=== PATIENT | female | born 1980 | race Caucasian/White ===

== ENCOUNTER 2019-06-22 08:46 | Outpatient (REF) | payer OTHER, SELFPAY ==
[2019-06-22 14:16] LABS: Calculated LDL 78 mg/dL; Cholesterol 155 mg/dL (50-200); HDL Cholesterol 63 mg/dL (40-60); Triglyceride 71 mg/dL (30-150); Vitamin B12 454 pg/mL (193-986)
== END 2019-06-22 09:06 ==
LOC: NCHCN 08:46
PROVIDERS: PCP Nurse Practitioner; Visit Provider Nurse Practitioner
DX: R41.3 Other amnesia (principal); G43.109 Migraine with aura, not intractable, without status migrainosus; Z13.220 Encounter for screening for lipoid disorders
CPT/HCPCS: 80061; 83721; 82607

== ENCOUNTER 2020-05-22 01:21 | Outpatient (CLI) | payer OTHER, SELFPAY ==
[2020-05-22 11:01] LABS: TSH (W/Ref FT4) 2.17 uIU/mL (0.36-3.74)
== END 2020-05-22 01:41 ==
PROVIDERS: PCP Nurse Practitioner; Visit Provider Nurse Practitioner Family
DX: N92.6 Irregular menstruation, unspecified (principal)
CPT/HCPCS: 36415; 84443

== ENCOUNTER 2020-05-28 09:05 | Outpatient (REF) | payer OTHER, SELFPAY ==
--- NOTE | 2020-05-28 08:30 | PAPFT_PTH ---
PATIENT: Janelle Luna LOC: N U#:[id number] AGE/SX: 40/F ROOM: RE05/28/[address]: NING Delaney : 1980 BED: DIS: 05/28/2020 SPEC #: [id number] RECD: 05/28/20 12:49 STATUS: CARLOS REQ #: [id number] ESTELA: 05/28/20 08:[address]: Maris Black DEPT: [facility] Cytology RECD BY: Racquel Eduardo ENTERED: 05/28/20 12:50 SP TYPE: PAPFT OTHR DR: Myra Leigh Tissues: 1 - CX/ENDOCX FOR PAP SMEARS Procedures: PAP THIN PREP/UVM Screening HPV DNA PROBE Comments: [id number]
== END 2020-05-28 09:25 ==
LOC: LBN 09:05
PROVIDERS: PCP Nurse Practitioner; Visit Provider Nurse Practitioner Family
DX: Z12.4 Encounter for screening for malignant neoplasm of cervix (principal); Z11.51 Encounter for screening for human papillomavirus (HPV); R87.610 Atypical squamous cells of undetermined significance on cytologic smear of cervix (ASC-US)
CPT/HCPCS: 88142; 87624

== ENCOUNTER 2020-07-06 03:40 | Outpatient (CLI) | payer OTHER, SELFPAY ==
--- NOTE | 2020-07-06 06:30 | DI.US_ITS ---
EXAM: US PELVIS TRANSVAGINAL CLINICAL HISTORY: bulky uterus,enlarged uterus,personal h/o cervical dysplasia,n85.2,n81.89 TECHNIQUE: Ultrasound performed using standard protocol. COMPARISON: No exams were available for comparison FINDINGS: Pelvic ultrasound was performed transabdominally and transvaginally. There is an apparent 6 millimete r in diameter uterine fibroid projected adjacent to the endometrial stripe in the midbody. Mild heter ogeneity myometrial echogenicity noted. The endometrial stripe is homogeneous and about 3 millimeters in thickness. Right ovary has a normal follicular appearance with an exophytic simple cyst or follicle measuring 14 millimeters in diameter. Left ovary contains a 19 millimeter dominant follicle or cyst. A complex 19 millimeter avascular pred ominantly cystic mass is also noted on the left ovary which is indeterminate but which may represent hemorrhagic cyst. No free fluid identified in the cul-de-sac. Incidental 15 millimeter left renal simple cyst, otherwis e the kidneys appear normal on limited scanning. IMPRESSION: 19 millimeter complex left ovarian mass, possibly hemorrhagic cyst. Follow-up ultrasound recommended in 4-6 weeks to further evaluate this lesion. DATA REPOSITORY:
== END 2020-07-06 04:00 ==
PROVIDERS: PCP Nurse Practitioner; Visit Provider Nurse Practitioner Family
DX: N83.9 Noninflammatory disorder of ovary, fallopian tube and broad ligament, unspecified (principal); N81.89 Other female genital prolapse; N85.2 Hypertrophy of uterus; N83.202 Unspecified ovarian cyst, left side; N83.201 Unspecified ovarian cyst, right side
CPT/HCPCS: 76830; 76856

== ENCOUNTER 2020-07-25 01:03 | Outpatient (CLI) | payer OTHER, SELFPAY ==
--- NOTE | 2020-07-25 15:30 | DI.MAMMO_ITS ---
EXAM: MAMMO SCREENING CLINICAL HISTORY: screening TECHNIQUE: Mammograms were interpreted according to the usual protocol including computer analysis w [employer] CAD system, tomosynthesis and C-view imaging. COMPARISON: FINDINGS: The breasts are heterogeneously dense. No dominant mass or clumped microcalcification is identified in either breast. Today's examination is a baseline examination. There is a 6 millimeter in diameter nodule which is incompletely visualized seen posteriorly in the l ateral aspect of left breast on CC view only. Additional views of the left breast are requested incl uding an exaggerated CC view. Breast ultrasound should probably be obtained as well to evaluate this small well-circumscribed mass. No other suspicious abnormality seen. IMPRESSION: Additional mammographic views left breast and left breast ultrasound requested as described above. BI-RADS Category 0 - Assessment Incomplete: Need additional imaging evaluation Breast Density - Category C - Heterogeneously dense
== END 2020-07-25 01:23 ==
PROVIDERS: PCP Nurse Practitioner; Visit Provider Nurse Practitioner Family
DX: Z12.31 Encounter for screening mammogram for malignant neoplasm of breast (principal); N63.20 Unspecified lump in the left breast, unspecified quadrant; R92.2 Inconclusive mammogram
CPT/HCPCS: 77063; 77067

== ENCOUNTER 2020-08-10 04:03 | Outpatient (CLI) | payer OTHER, SELFPAY ==
--- NOTE | 2020-08-10 | DI.MAMMO_ITS ---
EXAM: MG MAMMO SCREEN CALL BACK UNI CLINICAL HISTORY: F/U MAMMO, NODULE LT BREAST INCOMPLETELY VISUALIZED. TECHNIQUE: Exaggerated lateral cc view of the left breast with Computer Aided Diagnosis followed by Tomosynthesis and left breast ultrasound. COMPARISON: 25 July 2020 FINDINGS: Mammography/Tomosynthesis: Masses/Architectural Distortion: None seen. There is a smoothly marginated small ovoid lesion with a central fatty hilum in the upper outer quadrant of the left breast with the typical appearance of a lymph node. Microcalcifictions: No suspicious pleomorphic-type are seen. Skin Thickening/Nipple Retraction: None. Breast US: Echotexture: Normal appearance of the glandular tissue. Shadowing: No suspicious foci. Cyst: None. Solid lesions: There is a 5 x 6 x 4 millimeter smoothly marginated hypoechoic lesion in the 2 o'clock position 4 cm from the nipple. No suspicious masses are seen. Ductal dilation: None. IMPRESSION: 1. No evidence of malignancy is noted. The nodule seen on mammogram has the appearance of an intra ma mmary lymph node. 2. Unless there is more urgent need, follow-up screening mammography is recommended, as per [employer] guidelines. BI-RADS Category 1 - Negative Breast Density - Category C - Heterogeneously dense The mammogram demonstrates the patient's breast tissue is dense. Dense breast tissue is very common a nd is not abnormal but dense breast tissue can make it harder to find cancer on a mammogram. Also, de nse breast tissue may increase their breast cancer risk. This information [facility] the [facility] was provided to the patient to raise their awareness. Use this report when you speak wi th the patient about their risks for breast cancer, which includes their family history. At that time , you may recommend for more screening tests (Ultrasound or MRI) as they might be useful based on the ir risk. A negative radiographic report should not delay biopsy if a dominant or clinically suspicious mass is present. Up to ten percent of cancers are not identified on mammography. A negative report may reinforce clinical impression. Adenosis and dense breasts may obscure an underlying neoplasm. False positive reports average 6 to 10%. Patient will receive a letter notifying them of these results.
== END 2020-08-10 04:23 ==
PROVIDERS: PCP Nurse Practitioner; Visit Provider Nurse Practitioner Family
DX: Z12.39 Encounter for other screening for malignant neoplasm of breast (principal); N63.20 Unspecified lump in the left breast, unspecified quadrant; R92.2 Inconclusive mammogram
CPT/HCPCS: 76642; 77063; 77067

== ENCOUNTER 2022-02-07 16:07 | Outpatient (REF) | payer OTHER, SELFPAY ==
--- NOTE | 2022-02-07 | PAPFT_PTH ---
PATIENT: Janelle Luna LOC: [facility] U#:[id number] AGE/SX: 42/F ROOM: RE02/07/[address]: NING Delaney : 1980 BED: DIS: 02/07/2022 SPEC #: [id number] RECD: 02/07/22 17:06 STATUS: CARLOS REVilla #: [id number] ESTELA: 02/07/22 00:[address]: Maris Black DEPT: [facility] Cytology RECD BY: Racquel Eduardo ENTERED: 02/07/22 17:06 SP TYPE: PAPFT OTHR DR: Myra Leigh Tissues: 1 - CX/ENDOCX FOR PAP SMEARS Procedures: PAP THIN PREP/UVM Screening HPV DNA PROBE Comments: [id number]
== END 2022-02-07 16:08 | disposition home or self-care (01) ==
LOC: LBN 16:07
PROVIDERS: PCP Nurse Practitioner; Visit Provider Nurse Practitioner Family
DX: Z12.4 Encounter for screening for malignant neoplasm of cervix (principal); Z11.51 Encounter for screening for human papillomavirus (HPV)
CPT/HCPCS: 88142; 87624

== ENCOUNTER 2022-03-12 01:32 | Outpatient (CLI) | payer OTHER, SELFPAY ==
--- NOTE | 2022-03-12 15:22 | DI.MAMMO_ITS ---
Exam(s) MAMMO SCREENING EXAM: MAMMO SCREENING CLINICAL HISTORY: screening TECHNIQUE: Mammograms were interpreted according to the usual protocol including computer analysis w [employer] CAD system, tomosynthesis and C-view imaging. COMPARISON: 2019 FINDINGS: The breasts are composed of heterogeneously dense fibroglandular densities, Breast Density category C . No suspicious masses or suspicious microcalcifications are seen. No skin thickening or abnormal axillary lymph nodes are seen. There has been no significant change from prior exams. IMPRESSION: BI-RADS Category 1, Negative mammogram. Yearly screening mammography is recommended. Breast Density Category C, heterogeneously Dense. The mammogram demonstrates the patient's breast tissue is dense. Dense breast tissue is very common a nd is not abnormal but dense breast tissue can make it harder to find cancer on a mammogram. Also, de nse breast tissue may increase breast cancer risk. This information about the result of the mammogram report was provided to the patient to raise their awareness. Use this report when you speak with the patient about their risks for breast cancer, which includes their family history. At that time, you may recommend additional screening tests (Ultrasound or MRI) as they might be useful based on their r isk. A negative radiographic report should not delay biopsy if a dominant or clinically suspicious mass is present. Up to ten percent of cancers are not identified on mammography. A negative report may reinforce clinical impression. Adenosis and dense breasts may obscure an underlying neoplasm. False positive reports average 6 to 10%.
== END 2022-03-12 01:52 ==
PROVIDERS: PCP Nurse Practitioner; Visit Provider Nurse Practitioner Family
DX: Z12.31 Encounter for screening mammogram for malignant neoplasm of breast (principal)
CPT/HCPCS: 77063; 77067

== ENCOUNTER 2022-05-21 01:16 | Outpatient (CLI) | payer OTHER, SELFPAY ==
--- NOTE | 2022-05-21 07:00 | DI.MAMMO_ITS ---
Exam(s) MAMMO DIAGNOSTIC UNI US BREAST LT LIMITED EXAM: MAMMO DIAGNOSTIC UNI and U/S breast LT limited CLINICAL HISTORY: left breast lump, N63.20. TECHNIQUE: Craniocaudal and mediolateral oblique Full Field Digital Mammography views of the left br east with Computer Aided Diagnosis followed by Tomosynthesis and left breast ultrasound. COMPARISON: Comparison is made with prior examinations. FINDINGS: Mammography/Tomosynthesis: Masses/Architectural Distortion: None seen. Microcalcifictions: No suspicious pleomorphic-type are seen. Skin Thickening/Nipple Retraction: None. Limited left breast US: Echotexture: Normal appearance of the glandular tissue. Shadowing: No suspicious foci. Cyst: None. Solid lesions: There is a well-circumscribed radially oriented hypoechoic nodule at the 10 o'clock po sition of the left breast 8 cm from the nipple. It measures 0.5 x 0.5 x 0.6 cm. No internal blood f low, posterior acoustic shadowing or enhancement is noted. This corresponds to the palpable abnormal ity per the patient. Ductal dilation: None. IMPRESSION: 1. 0.6 cm well-circumscribed hypoechoic nodule. This may represent a benign lesion such as a fibroad enoma. 2. A six-month follow-up left mammogram and ultrasound are recommended for re-evaluation. 3. The findings were discussed with the patient on the date of the examination. BI-RADS Category 3 - 6 month - Probably Benign Finding: Recommend follow-up imaging in 6 months Breast Density - Category C - Heterogeneously dense Breast density Category C or D implies that the patient has dense breast tissue. Dense breast tissue can make it harder to find cancer on a mammogram. Dense breast tissue is also associated with an incr eased risk of breast cancer. This information about the result of the mammogram report was provided to the patient to raise their awareness. Use this report when you speak with the patient about their risks for breast cancer, which includes their family history. At that time, you may recommend additional screening tests (Ultrasoun d or MRI) as these tests may add significant information. A negative radiographic report should not delay biopsy if a dominant or clinically suspicious mass is present. Up to ten percent of cancers are not identified on mammography. A negative report may reinforce clinical impression. Adenosis and dense breasts may obscure an underlying neoplasm. False positive reports average 6 to 10%. Patient will receive a letter notifying them of these results.
== END 2022-05-21 01:36 ==
PROVIDERS: PCP Nurse Practitioner; Visit Provider Nurse Practitioner Family
DX: N63.22 Unspecified lump in the left breast, upper inner quadrant (principal); R92.2 Inconclusive mammogram
CPT/HCPCS: 76642; 77061; 77065; G0279

== ENCOUNTER → 2022-11-21 00:01 | Outpatient (CLI) | payer OTHER, SELFPAY ==
--- NOTE | 2022-11-21 08:15 | DI.US_ITS ---
Exam(s) MG MAMMO DIAGNOSTIC UNI US BREAST LT LIMITED EXAM: MG MAMMO DIAGNOSTIC UNI and U/S breast LT limited CLINICAL HISTORY: 6 mo f/u left, R92.8, F/U TO ABNL EXAM. TECHNIQUE: Craniocaudal and mediolateral oblique Full Field Digital Mammography views of the left br east with Computer Aided Diagnosis followed by Tomosynthesis and left breast ultrasound. COMPARISON: Comparison is made with other examinations. FINDINGS: Mammography/Tomosynthesis: Masses/Architectural Distortion: The ovoid density in the upper left breast has shown slight interval increase in size compared to the prior examination. There is again seen a benign-appearing lymph no de in the upper left breast. Microcalcifictions: No suspicious pleomorphic-type are seen. Skin Thickening/Nipple Retraction: None. Limited left breast US: Echotexture: Normal appearance of the glandular tissue. Shadowing: No suspicious foci. Cyst: None. Solid lesions: There is a hypoechoic 0.5 x 0.6 cm mass seen at the 10 o'clock position of the left br east 8 cm from the nipple. The mass now has irregular borders and is taller rather wide. It has a di fferent appearance compared to the prior examination. Ductal dilation: None. IMPRESSION: 1. Irregular hypoechoic 0.5 x 0.6 cm mass at the 10 o'clock position of the left breast 8 cm from the nipple. 2. Biopsy is recommended in this patient. 3. The findings were discussed with the patient on the date of the examination. Findings were also d iscussed with Dr. Julieta Arita on 11/21/2022. BI-RADS Category 4 - Suspicious Abnormality: Biopsy should be considered Breast Density - Category C - Heterogeneously dense Breast density Category C or D implies that the patient has dense breast tissue. Dense breast tissue can make it harder to find cancer on a mammogram. Dense breast tissue is also associated with an incr eased risk of breast cancer. This information about the result of the mammogram report was provided to the patient to raise their awareness. Use this report when you speak with the patient about their risks for breast cancer, which includes their family history. At that time, you may recommend additional screening tests (Ultrasoun d or MRI) as these tests may add significant information. A negative radiographic report should not delay biopsy if a dominant or clinically suspicious mass is present. Up to ten percent of cancers are not identified on mammography. A negative report may reinforce clinical impression. Adenosis and dense breasts may obscure an underlying neoplasm. False positive reports average 6 to 10%. Patient will receive a letter notifying them of these results.
== END ==
PROVIDERS: PCP Nurse Practitioner; Visit Provider Nurse Practitioner Family
DX: R92.8 Other abnormal and inconclusive findings on diagnostic imaging of breast (principal); N63.22 Unspecified lump in the left breast, upper inner quadrant
CPT/HCPCS: 76642; 77061; 77065; G0279

== ENCOUNTER 2022-12-03 03:15 | Outpatient (CLI) | payer OTHER, SELFPAY ==
--- NOTE | 2022-12-02 13:00 | BREAST_PTH ---
PATIENT: Janelle Luna LOC: [facility] U#:[id number] AGE/SX: 42/F ROOM: RE12/03/[address]: Maikol Carbajal MD : 1980 BED: DIS: 12/03/2022 SPEC #: [id number] RECD: 12/03/22 13:07 STATUS: CARLOS REQ #: [id number] ESTELA: 12/02/22 13:[address]: Maikol Carbajal DEPT: Surgical Specimen RECD BY: Racquel Eduardo ENTERED: 12/03/22 13:08 SP TYPE: Breast OTHR DR: Myra Leigh Tissues: 1 - BREAST BX NEEDLE Procedures: GROSS AND MICRO LEVEL 4 Her-2 Dual JOHANA [id number] IPEX ESTROGEN/PROGESTERONE RECEPTOR IPEX STAIN Comments: [id number]
--- NOTE | 2022-12-03 | DI.US_ITS ---
Exam(s) US NEEDLE LOCAL BREAST WO RAD EXAM: US NEEDLE LOCAL BREAST WO RAD CLINICAL HISTORY: LT BREAST MASS,ULTRASOUND GUIDED BX. Right Breast. Left Breast. TECHNIQUE: Ultrasound was provided for Dr. Maikol Carbajal for guidance with performing a left breast bi opsy. COMPARISON: US US BREAST LT LIMITED from 11/21/2022 MG MG MAMMO DIAGNOSTIC UNI from 11/21/2022 FINDINGS: Please see procedure note for details.
--- NOTE | 2022-12-03 15:30 | OPPNE_ITS ---
Date of service: 12/03/22 Time of Service: 13:00 Procedure Note Date of procedure: 12/03/22 Procedure: Ultrasound guided core needle biopsy Surgeon/Proceduralist/Physician: Maikol Carbajal Procedure Diagnosis: Left breast mass Procedure Indications: Janelle is a 42-year-old woman with a suspicious lesion observed on mammography. She underwent follow-up ultrasound that demonstrated a 0.5 x 0.6 centimeters mass in the 10 o'clock position approximately 8 years from the nipple. This was considered BI-RADS Category 4. He is here for follow-up core needle biopsy. Procedure Description: With the assistance of real-time ultrasound and assistance of an food safety field specialist, we were able to identify the irregular hypoechoic lesion described during the previous ultrasound study. It was in the left breast. It was approximately 8 cm from the nipple in the 10 o'clock position. It appeared to be approximately 1 cm deep. Next, I cleansed and prepped the skin adjacent to the ultrasound probe. Using aseptic technique, I used local anesthetic to establish a small block in the area of the skin incision, as well as along the planned trajectory of the biopsy. Next, I made a small skin incision using a #11 blade scalpel. Then, under the direct vision of the ultrasound, using a Bard 22 mm core needle biopsy device, I made 3 passes through the lesion. There were 2 acceptable specimens obtained. Thereafter, majority of the lesion was obliterated. Next, using a ultra clip to rest tissue marker, I deployed a permanent marking device into the area of the lesion in the case that future localization was required. Next, I cleansed the percutaneous biopsy site, and applied a Band-Aid.
== END 2022-12-03 03:35 ==
LOC: DI 03:15
PROVIDERS: PCP Nurse Practitioner; Visit Provider Surgery
DX: C50.412 Malignant neoplasm of upper-outer quadrant of left female breast (principal)
CPT/HCPCS: 19083; 88305; 88360; 76942; 88377

== ENCOUNTER 2022-12-10 12:21 | Outpatient (REF) | payer OTHER, SELFPAY ==
[2022-12-11 14:32] LABS: Chlamydia Result Negative (Negative); GC Result Negative (Negative)
== END 2022-12-10 12:22 | disposition home or self-care (01) ==
LOC: LBN 12:21
PROVIDERS: PCP Nurse Practitioner; Visit Provider Advanced Practice Midwife
DX: N89.8 Other specified noninflammatory disorders of vagina (principal)
CPT/HCPCS: 87491; 87591; 87480; 87510; 87660

== ENCOUNTER 2023-01-12 01:53 | Outpatient (CLI) | payer OTHER, SELFPAY ==
[2023-01-12 14:45] LABS: Abs Immature Grans 0.02 10^3/uL (0.0-0.06); Absolute Basophil Count 0.09 10^3/uL (0.0-0.2); Absolute Eosinophil Count 0.14 10^3/uL (0.0-0.7); Absolute Monocyte Count 0.93 10^3/uL (0.1-0.8); Absolute Neutrophil Count 5.88 10^3/uL (1.2-6.7); Eosinophils % 1.6; HCT 41.1 % (36.0-46.0); HGB 13.3 g/dL (11.2-15.7); Immature Grans % 0.2; Lymphocytes % 20.3; MCH 30.9 pg (27.0-33.0); MCHC 32.4 % (32.0-36.0); MCV 95 fL (80-95); MPV 9.2 fL (8.0-11.0); Monocytes % 10.5; Neutrophils % 66.4; Platelet Count 273 10^3/uL (130-400); RBC 4.31 10^6/uL (3.93-5.22); RDW 12.9 % (11.7-14.6); RDW-SD 45.6 fL; WBC 8.86 10^3/uL (4.4-10.8)
== END 2023-01-12 01:54 | disposition home or self-care (01) ==
LOC: LBO 01:54
PROVIDERS: PCP Nurse Practitioner Family; Visit Provider Obstetrics & Gynecology
DX: N92.5 Other specified irregular menstruation (principal); C50.412 Malignant neoplasm of upper-outer quadrant of left female breast; F41.8 Other specified anxiety disorders; R93.89 Abnormal findings on diagnostic imaging of other specified body structures; Z01.818 Encounter for other preprocedural examination; Z01.812 Encounter for preprocedural laboratory examination
CPT/HCPCS: 36415; 86850; 86900; 86901; 85025

== ENCOUNTER 2023-01-14 06:13 | Day surgery (SDC) | payer OTHER, SELFPAY ==
[2023-01-14 06:18] VITALS: BP 116/85; PULSE 89; RESP 18; TEMP 36.9; O2SAT 98
[2023-01-14] MEDS: Lactated Ringers 1,000 ML 125 ML IV (06:48)
--- NOTE | 2023-01-14 06:52 | W.ANESPRE ---
General Info Date of Service Date Performed: 01/14/23 Height: 5 ft 5 in Weight: 63.1 kg Body Mass Index (BMI): 23.1 Surgical Procedure: Operation Date: 01/14/23 07:40 Proposed Procedure Side Surgeon p Dilation & Curettage with Hysteroscopy, Possible Myosure Julieta Arita DO Meds Allergies and Home Medications Allergies Allergy/AdvReac Type Severity Reaction Status Date / Time escitalopram [From Lexapro] Allergy Severe Verified 01/14/23 06:20 metronidazole Allergy Severe Rash Verified 01/14/23 06:20 amoxicillin trihydrate Allergy RASH Verified 01/14/23 06:20 [From Augmentin] potassium clavulanate Allergy RASH Verified 01/14/23 06:20 [From Augmentin] diltiazem AdvReac HEADACHES Verified 01/14/23 06:20 Home Medication Medication Instructions Recorded Vitamin B-2 100 mg PO DAILY 10/14/12 multivitamin (Daily Multi-Vitamin 1 ea PO DAILY 10/18/14 tablet) lactobacillus combination no.9 4 25 mmu cells PO DAILY 06/27/20 billion cell capsule (Adult 50 Plus Probiotic) norethindrone (contraceptive) 0.35 0.35 mg PO DAILY #84 tabs 02/07/22 mg tablet calcium carbonate 600 mg-vitamin 0.5 cap PO DAILY 12/10/22 D3 12.5 mcg (500 unit) capsule (Calcium 600 with Vitamin D3) clonazepam 0.5 mg tablet (Klonopin) 0.5 mg PO DAILY PRN anxiety #7 tabs 12/10/22 Current Visit Medications: Current Medications Generic Name Dose Route Start Last Admin Trade Name Hiq PRN Reason Stop Dose Admin Ringer's Solution 1,000 mls @ 125 mls/hr 01/14/23 06:00 01/14/23 06:48 IV 02/12/23 23:59 125 mls/hr INFUSION JULIEN Administration IV Miscellaneous Supplies 1 each 01/14/23 06:00 Iv Access IV 02/12/23 23:59 DIRECTED JULIEN Sodium Chloride 0 ml 01/14/23 06:00 Normal Saline Flush 10 Ml Syr IV 02/12/23 23:59 PRN PRN Sodium Chloride 0 ml 01/14/23 06:00 Normal Saline 10 Ml Vial IJ 02/12/23 23:59 DIRECTED PRN Sterile Water 0 ml 01/14/23 06:00 Water,Injection,Sterile 10 Ml Vial IJ 02/12/23 23:59 DIRECTED PRN PFSH Active Problems Active Problems: Problem Status Onset Code Stress F43.9 Anxiety about health F41.8 Vaginal discharge N89.8 Irregular menses N92.6 Breast cancer C50.919 Abnormal mammogram R92.8 Pelvic floor relaxation N81.89 Enlarged uterus N85.2 Personal history of cervical dysplasia 05/19/17 Z87.410 Headache R51 Depression with anxiety F41.8 Urine frequency R35.0 Medical History Medical History ASCUS (atypical squamous cells of undetermined significance) on gynecologic Papanicolaou smear complicating , antepartum Depression History of palpitations Menstrual irregularity since 03/2014. Nl TSH/Prolactin. 09/2014 Started on OCPs. Migraine complex migraine UTI (urinary tract infection) Surgical History Surgical History section 2005 @ 36w for fetus with cerebral teratoma. shortly after Tobacco Smoking/Tobacco Use Status: Never Alcohol Alcohol Intake: never Substance Use Substance use: Never Substance use type: does not use Vital Signs and Lab Results Vital Signs Most Recent Vital Signs in EMR: Most Recent Vital Signs Temp Pulse Resp BP Pulse Ox 36.9 C 89 18 116/85 98 01/14/23 06:18 01/14/23 06:18 01/14/23 06:18 01/14/23 06:18 01/14/23 06:18 Point of Care Results Point of Care Results: POC- Test(urine) Negative 01/14/23 06:40 Lab Results Blood Type / Crossmatch: Patient ABO/Rh A Negative 01/12/23 Antibody Screen NEGATIVE 01/12/23 Complete Blood Count: White Blood Count 8.86 10^3/uL (4.4-10.8) 01/12/23 14:37 Red Blood Count 4.31 10^6/uL (3.93-5.22) 01/12/23 14:37 Hemoglobin 13.3 g/dL (11.2-15.7) 01/12/23 14:37 Hematocrit 41.1 % (36.0-46.0) 01/12/23 14:37 Platelet Count 273 10^3/uL (130-400) 01/12/23 14:37 Complete Metabolic Panel: No Data to Display Liver Function Panel: No Data to Display Coagulation Panel: No Data to Display Cardiac Panel: No Data to Display Arterial Blood Gas: No Data to Display Venous Blood Gas: No Data to Display Pancreas Panel: No Data to Display Thyroid Panel: No Data to Display Infectious Disease: No Data to Display Blood Cultures: No Data to Display Toxicology Panel: No Data to Display Panel: No Data to Display Anesthesia Assessment and Plan Anesthesia History Personal History: No History of Anesthesia Complications Family History: No Family History of Anesthesia Complications Exercise Tolerance Exercise Tolerance: Metabolic Equivalents>4 Pertinent Negatives Pertinent Negatives: No Symptoms of GERD Cardiac & Pulmonary Exam Cardiac Exam: Normal S1/S2 Heart Sounds Pulmonary Exam: Clear Bilateral Breath Sounds Implantable Cardiac Device Does patient have a Pacemaker or an ICD?: No Airway Exam Known Difficult Airway: No Mallampati Class: 1 Mouth Opening: Normal (> 3cm) Thyromental Distance: Greater than 3 cm Neck Range of Motion: Full ROM Neck Circumference: Normal Teeth Condition: Normal Dentition ASA Classification ASA Score: ASA 3 Emergency Case?: No NPO Status NPO Status: NPO Clears >2 hours, Solids >8 hours Status Status: Negative HCG Anesthesia Plan Resuscitation Status: Full Code Anesthesia Technique: General Anesthesia Airway Planned: LMA Pain Management: Surgeon and patient request nerve block Monitors Used: Standard Monitors
[2023-01-14 06:55] VITALS: BMI 23.1
--- NOTE | 2023-01-14 07:54 | ENDO_PTH ---
PATIENT: Janelle Luna LOC: [facility] U#:[id number] AGE/SX: 43/F ROOM: RE01/14/[address]: Julieta Arita DO : 1980 BED: DIS: 01/14/2023 SPEC #: [id number] RECD: 01/14/23 12:18 STATUS: CARLOS REQ #: [id number] ESTELA: 01/14/23 07:[address]: Julieta Arita DEPT: Surgical Specimen RECD BY: Racquel Eduardo ENTERED: 01/14/23 12:20 SP TYPE: Endo OTHR DR: Verónica Torres Tissues: 1 - ENDOCERVICAL BX/CURRETTE 2 - ENDOMETRIUM BX/CURRETTE Procedures: GROSS AND MICRO LEVEL 4 Comments: [id number]
[2023-01-14 08:12] VITALS: BP 97/64; PULSE 71; RESP 16; TEMP 36.7; O2SAT 97
--- NOTE | 2023-01-14 08:13 | W.PM.OP ---
Date of service: 01/14/23 Time of Service: 08:13 Operative Note Operative Note DATE OF PROCEDURE: 01/14/23 PRE-OP DIAGNOSIS: Heavy menstrual bleeding, thickened endometrium. New diagnosis of breast cancer. Desires contraception POST-OP DIAGNOSIS: same PROCEDURE: Hysteroscopy with fractional dilation and curettage, placement of a ParaGard IUD SURGEON: Julieta Arita ANESTHESIA TYPE: General:No Airway Refer to Anesthesia Record ESTIMATED BLOOD LOSS: 5 PATHOLOGY: other (1. Endocervical curettage 2. Endometrial curettage) COMPLICATIONS: None Implants: ParaGard IUD-Lot [id number] expiration 05/2028 Indications: Thickened endometrium and irregular menstrual bleeding. Recent diagnosis of breast cancer. Desires contraceptive management. Findings: Small polypoid structure at the endocervix, removed. Smooth endocervical canal. Regular endometrium. No evidence of intrauterine mass, polyp, or fibroid. Procedure Description: After full informed consent was obtained, patient was taken the operating suite. IV was running. Negative status verified. She was placed in the dorsal supine position and general anesthesia administered. She was then placed in the modified dorsolithotomy position with yellowfin stirrups and prepped and draped in the usual sterile fashion. She had pneumatic compression stockings for DVT prophylaxis. At this point speculum was inserted into the vaginal vault and cervix identified. There was noted to be a small polypoid lesion in the superior aspect of the cervix which was removed with a polyp forcep and endocervical curettage performed for scant tissue. Single-tooth tenaculum used to grasp the anterior lip of the cervix and cervical os dilated to point that a 5 mm hysteroscope could be passed with ease. With instillation of normal saline into the uterine cavity, the cavity was inspected and found to be smooth, regular, and free of polyps, fibroids, or any lesion. Both tubal ostia were visualized. At this point the hysteroscope was removed and curettage of the endometrial cavity performed. Once fractional dilation and curettage was completed, the uterus had been sounded to 7 cm, ParaGard IUD inserted to the fundus and deployed. Strings were cut to 3 cm. Single-tooth tenaculum was removed and puncture sites were hemostatic. Speculum was removed from the vaginal vault. Complications: None apparent EBL: 5 mL Fluids: Crystalloid per anesthesia Pathology: 1. Endocervical curetting 2. Endometrial curetting Implant: ParaGard IUD, intrauterine, lot [id number] expiration 05/2028.
[2023-01-14 08:30] VITALS: BP 108/72; PULSE 68; RESP 16; TEMP 36.6; O2SAT 99
[2023-01-14 08:45] VITALS: BP 108/72; PULSE 72; RESP 16; TEMP 36.6
--- NOTE | 2023-01-14 09:14 | W.ANESPOSTOP ---
Postoperative Evaluation Date, Time and Location Date Performed: 01/14/23 Time Performed: 09:14 Patient Location: Day Surgery Unit Vital Signs Most Recent Imported Vital Signs: Most Recent Vital Signs Temp Pulse Resp BP Pulse Ox 36.6 C 72 16 108/72 99 01/14/23 08:45 01/14/23 08:45 01/14/23 08:45 01/14/23 08:45 01/14/23 08:30 Pain Score Most Recent Pain Score: Most Recent Pain Score Pain Level 3 01/14/23 08:30 Assessment Mental Status: Awake (Alert & Oriented to Patient Baseline) Airway and Respiratory Function: Patent airway with normal (patient baseline) respiratory exam Cardiovascular Function: Hemodynamically Stable Hydration Status: Adequately Hydrated Nausea & Vomiting: No Nausea or Vomiting Pain: Pt. Denies Any Pain Peripheral Nerve Block: Patient did not receive a nerve block
== END 2023-01-14 09:22 | disposition home or self-care (01) ==
PROVIDERS: PCP Nurse Practitioner Family; Visit Provider Obstetrics & Gynecology
PROC: 0UDB8ZZ Extraction of Endometrium, Via Natural or Artificial Opening Endoscopic (ICD-10-PCS; CPT 58558; principal; 2023-01-14 07:30)
DX: N92.6 Irregular menstruation, unspecified (principal); R93.89 Abnormal findings on diagnostic imaging of other specified body structures; C50.919 Malignant neoplasm of unspecified site of unspecified female breast; Z87.410 Personal history of cervical dysplasia; Z30.8 Encounter for other contraceptive management; N85.8 Other specified noninflammatory disorders of uterus
CPT/HCPCS: 58558; 58300; 81025; 88305; J7300; C1781; J1100; J1885; J2250; J2405; J2704

== ENCOUNTER 2023-05-25 03:04 | Outpatient (CLI) | payer OTHER, SELFPAY ==
[2023-05-25 14:41] LABS: Abs Immature Grans 0.02 10^3/uL (0.0-0.06); Absolute Basophil Count 0.06 10^3/uL (0.0-0.2); Absolute Eosinophil Count 0.05 10^3/uL (0.0-0.7); Absolute Lymphocyte Count 1.17 10^3/uL (1.2-3.4); Absolute Monocyte Count 0.59 10^3/uL (0.1-0.8); Absolute Neutrophil Count 4.11 10^3/uL (1.2-6.7); Eosinophils % 0.8; HCT 37.6 % (36.0-46.0); HGB 12.7 g/dL (11.2-15.7); Immature Grans % 0.3; Lymphocytes % 19.5; MCH 31.1 pg (27.0-33.0); MCHC 33.8 % (32.0-36.0); MCV 92 fL (80-95); MPV 9.6 fL (8.0-11.0); Monocytes % 9.8; Neutrophils % 68.6; Platelet Count 257 10^3/uL (130-400); RBC 4.09 10^6/uL (3.93-5.22); RDW 12.4 % (11.7-14.6)
== END 2023-05-25 03:05 | disposition home or self-care (01) ==
LOC: LBO 03:04
PROVIDERS: PCP Nurse Practitioner Family; Visit Provider Obstetrics & Gynecology
DX: Z01.818 Encounter for other preprocedural examination (principal)
CPT/HCPCS: 36415; 86850; 86900; 86901; 85025

== ENCOUNTER 2023-05-27 08:31 | Day surgery (SDC) | payer OTHER, SELFPAY ==
[2023-05-27] VITALS (11 sets, daily range): BP systolic 89–122; BP diastolic 58–87; PULSE 60–88; RESP 10–18; TEMP 36.6–37; O2SAT 98–100; BMI 23.8
[2023-05-27] MEDS: Lactated Ringers 1,000 ML 125 ML IV (09:14)
--- NOTE | 2023-05-27 09:19 | W.ANESPRE ---
General Info Date of Service Date Performed: 05/27/23 Height: 5 ft 5 in Weight: 64.8 kg Body Mass Index (BMI): 23.8 Surgical Procedure: Operation Date: 05/27/23 09:40 Proposed Procedure Side Surgeon p Salpingectomy Laparoscopic Bilateral Julieta Arita DO s Removal of IUD Julieta Arita DO Meds Allergies and Home Medications Allergies Allergy/AdvReac Type Severity Reaction Status Date / Time escitalopram [From Lexapro] Allergy Severe Verified 05/27/23 09:17 metronidazole Allergy Severe Rash Verified 05/27/23 09:17 amoxicillin trihydrate Allergy RASH Verified 05/27/23 09:17 [From Augmentin] potassium clavulanate Allergy RASH Verified 05/27/23 09:17 [From Augmentin] diltiazem AdvReac HEADACHES Verified 05/27/23 09:17 Home Medication Medication Instructions Recorded Vitamin B-2 100 mg PO HS 10/14/12 multivitamin (Daily Multi-Vitamin 1 ea PO HS 10/18/14 tablet) lactobacillus combination no.9 4 25 mmu cells PO HS 06/27/20 billion cell capsule (Adult 50 Plus Probiotic) calcium carbonate 600 mg-vitamin 0.5 cap PO HS 12/10/22 D3 12.5 mcg (500 unit) capsule (Calcium 600 with Vitamin D3) clonazepam 0.5 mg tablet (Klonopin) 0.5 mg PO DAILY PRN anxiety #7 tabs 12/10/22 copper 380 square mm intrauterine 1 device intrauterine ONCE #1 ea 01/14/23 device (ParaGard T 380A) tamoxifen 20 mg tablet 20 mg PO HS 05/08/23 ibuprofen 800 mg tablet 800 mg PO Q8H PRN heavy menses #90 05/15/23 tabs Current Visit Medications: Current Medications Generic Name Dose Route Start Last Admin Trade Name Freq PRN Reason Stop Dose Admin Ringer's Solution 1,000 mls @ 125 mls/hr 05/27/23 06:00 05/27/23 09:14 IV 06/25/23 23:59 125 mls/hr INFUSION JULIEN Administration IV Miscellaneous Supplies 1 each 05/27/23 06:00 Iv Access IV 06/25/23 23:59 DIRECTED JULIEN Sodium Chloride 0 ml 05/27/23 06:00 Normal Saline Flush 10 Ml Syr IV 06/25/23 23:59 PRN PRN Sodium Chloride 0 ml 05/27/23 06:00 Normal Saline 10 Ml Vial IJ 06/25/23 23:59 DIRECTED PRN Sterile Water 0 ml 05/27/23 06:00 Water,Injection,Sterile 10 Ml Vial IJ 06/25/23 23:59 DIRECTED PRN PFSH Active Problems Active Problems: Problem Status Onset Code Urine frequency R35.0 Depression with anxiety F41.8 Headache R51 Personal history of cervical dysplasia 05/19/17 Z87.410 Enlarged uterus N85.2 Pelvic floor relaxation N81.89 Abnormal mammogram R92.8 Breast cancer C50.919 Irregular menses N92.6 Vaginal discharge N89.8 Anxiety about health F41.8 Stress F43.9 IUD surveillance Z30.431 Heavy menstrual bleeding N92.0 Contraceptive management Z30.9 Medical History Medical History ASCUS (atypical squamous cells of undetermined significance) on gynecologic Papanicolaou smear complicating , antepartum Depression History of palpitations Per pt. states when she gets stressed or overtired, she will have palpitations did not require work-up Menstrual irregularity since 03/2014. Nl TSH/Prolactin. 09/2014 Started on OCPs. Migraine complex migraine UTI (urinary tract infection) Surgical History Surgical History (Updated 05/27/23 @ 09:17 by Amber Gregorio, RN) section 2005 @ 36w for fetus with cerebral teratoma. shortly after History of lumpectomy of left breast Tobacco Smoking/Tobacco Use Status: Never Alcohol Alcohol Intake: never Substance Use Substance use: Never Substance use type: does not use Vital Signs and Lab Results Vital Signs Most Recent Vital Signs in EMR: Most Recent Vital Signs Temp Pulse Resp BP Pulse Ox 37 C 86 18 112/87 100 05/27/23 08:40 05/27/23 08:40 05/27/23 08:40 05/27/23 08:40 05/27/23 08:40 Point of Care Results Point of Care Results: POC- Test(urine) Negative 05/27/23 09:03 Lab Results Blood Type / Crossmatch: Patient ABO/Rh A Negative 05/25/23 Antibody Screen NEGATIVE 05/25/23 Complete Blood Count: White Blood Count 6.00 10^3/uL (4.4-10.8) 05/25/23 14:30 Red Blood Count 4.09 10^6/uL (3.93-5.22) 05/25/23 14:30 Hemoglobin 12.7 g/dL (11.2-15.7) 05/25/23 14:30 Hematocrit 37.6 % (36.0-46.0) 05/25/23 14:30 Platelet Count 257 10^3/uL (130-400) 05/25/23 14:30 Complete Metabolic Panel: No Data to Display Liver Function Panel: No Data to Display Coagulation Panel: No Data to Display Cardiac Panel: No Data to Display Arterial Blood Gas: No Data to Display Venous Blood Gas: No Data to Display Pancreas Panel: No Data to Display Thyroid Panel: No Data to Display Infectious Disease: No Data to Display Blood Cultures: No Data to Display Toxicology Panel: No Data to Display Panel: No Data to Display Anesthesia Assessment and Plan Anesthesia History Personal History: No History of Anesthesia Complications Family History: No Family History of Anesthesia Complications Exercise Tolerance Exercise Tolerance: Metabolic Equivalents>4 Pertinent Negatives Pertinent Negatives: No Symptoms of GERD, No Major Cardiovascular Symptoms or Complaints, No Major Pulmonary Symptoms or Complaints and No History of CVA/TIA Cardiac & Pulmonary Exam Cardiac Exam: Normal S1/S2 Heart Sounds Pulmonary Exam: Clear Bilateral Breath Sounds Implantable Cardiac Device Does patient have a Pacemaker or an ICD?: No Airway Exam Known Difficult Airway: No Mallampati Class: 2 Mouth Opening: Normal (> 3cm) Thyromental Distance: Less than 3 cm Neck Range of Motion: Full ROM Neck Circumference: Normal Teeth Condition: Normal Dentition ASA Classification ASA Score: ASA 2 Emergency Case?: No NPO Status NPO Status: NPO Clears >2 hours, Solids >8 hours Status Status: Negative HCG Anesthesia Plan Resuscitation Status: Full Code Anesthesia Technique: General Anesthesia Airway Planned: Endotracheal Tube Monitors Used: Standard Monitors
--- NOTE | 2023-05-27 10:40 | FALL_PTH ---
PATIENT: Janelle Luna LOC: [facility] U#:[id number] AGE/SX: 43/F ROOM: RE05/27/[address]: Julieta Arita DO : 1980 BED: DIS: 05/27/2023 SPEC #: [id number] RECD: 05/27/23 12:35 STATUS: CARLOS RE #: [id number] ESTELA: 05/27/23 10:[address]: Julieta Arita DEPT: Surgical Specimen RECD BY: Racquel Eduardo ENTERED: 05/27/23 12:40 SP TYPE: Fall OTHR DR: Verónica Torres Tissues: 1 - FALLOPIAN TUBE (STERILIZATION) 2 - FALLOPIAN TUBE (STERILIZATION) Procedures: GROSS AND MICRO LEVEL 2 Comments: [id number]
[2023-05-27] MEDS: Bupivacaine 0.25% Pres-Free 30 ML VIAL (10:45)
--- NOTE | 2023-05-27 11:00 | W.PM.OP ---
Date of service: 05/27/23 Time of Service: 11:01 Operative Note Operative Note DATE OF PROCEDURE: 05/27/23 PRE-OP DIAGNOSIS: Undesired fertility POST-OP DIAGNOSIS: same Omental adhesions PROCEDURE: Bilateral laparoscopic salpingectomy, lysis of adhesions, removal of ParaGard IUD. SURGEON: Julieta Arita ASSISTING SURGEON: Irais Collins ANESTHESIA TYPE: Local By Surgeon and General LMA/ETT Refer to Anesthesia Record ESTIMATED BLOOD LOSS: 5 PATHOLOGY: other (1. Right fallopian tube 2. Left fallopian tube) COMPLICATIONS: None Patient was transported to: PACU Patient's condition: stable Indications: Undesired fertility, risk reduction Findings: Normal-appearing uterus, tubes, ovaries. Small omental adhesion to the anterior abdominal wall. Procedure Description: After full informed consent was obtained, patient was taken the operating suite with an IV running. She was placed in the dorsal supine position and endotracheal intubation performed for the administration of general anesthesia without difficulty. She was then placed in the modified dorsal lithotomy position in yellowfin stirrups. No antibiotic prophylaxis was necessary. Pneumatic compression stockings were placed for DVT prophylaxis. Exam under anesthesia performed revealing a uterus that was small, midline, mobile. Patient was prepped and draped in the usual sterile fashion. Speculum was placed into the posterior vaginal vault and cervix identified. ParaGard IUD string identified and grasped with gentle traction ParaGard removed in toto and disposed of. At this point a Trigence uterine manipulator was placed for uterine manipulation and the speculum was removed. At this point attention was turned to the abdomen where quarter percent Marcaine was used to infiltrate the umbilical space. A vertical skin incision was made and the anterior yanet wall was elevated with sharp towel clips. Varies needle was inserted into the abdomen and with a maximum pressure of 15 mmHg of CO2 gas and pneumoperitoneum was created. Under direct visualization with an Optiview 12 mm trocar a sleeve and trocar were placed into the umbilical incision. The abdomen was inspected and found to be atraumatic. There is noted to be 1 omental adhesion to the anterior abdominal wall which was small in nature. A second and third right and left lower quadrant trocar was placed after infiltration of quarter percent Marcaine and under direct visualization. The omental adhesion was then cautery transected and noted to be hemostatic. Attention was then turned to the left fallopian tube which was elevated and cautery transected. Pedicle was hemostatic. Similar procedure was carried out on the right fallopian tube and also noted to be hemostatic. The left fallopian tube was initially removed from the abdomen via the 12 mm trocar site as well as the right fallopian tube and sent separately to pathology. Pedicles were again reinspected and noted to be hemostatic. The remainder of the abdomen was also free of trauma or disease. At this point the procedure was terminated and CO2 gas discontinued. Pneumoperitoneum was released. All instruments removed from the abdomen and the fascial incision at the umbilicus was closed using 0 Vicryl suture. Skin edges were reapproximated with 4-0 undyed Monocryl and sterile dressing with Steri-Strips placed. At this point the Hulka also was removed from the endometrial cavity. The patient returned to the dorsal supine position and awoke from anesthesia without difficulty. She was taken the postanesthesia care unit in stable condition. Findings: Removal of ParaGard IUD. Normal-appearing tubes, ovaries, uterus. No intra-abdominal trauma or pathology noted. Small omental adhesion to the anterior abdominal wall, lysed. EBL: 5 ml Fluids: Crystalloid per anesthesia complications: None apparent Pathology: 1. Right fallopian tube 2. Left fallopian tube
[2023-05-27] MEDS: fentaNYL 100 MCG/2 ML VIAL IVP ×2 (11:25→11:33)
[2023-05-27] MEDS: LORazepam 2 MG/ML VIAL 0.5 MG IVP (12:02)
--- NOTE | 2023-05-27 12:47 | W.ANESPOSTOP ---
Postoperative Evaluation Date, Time and Location Date Performed: 05/27/23 Time Performed: 12:25 Patient Location: Day Surgery Unit Vital Signs Most Recent Imported Vital Signs: Most Recent Vital Signs Temp Pulse Resp BP Pulse Ox 36.6 C 74 16 109/74 100 05/27/23 12:25 05/27/23 12:25 05/27/23 12:25 05/27/23 12:25 05/27/23 12:25 Pain Score Most Recent Pain Score: Most Recent Pain Score Pain Level 8 05/27/23 12:25 Assessment Mental Status: Awake (Alert & Oriented to Patient Baseline) Airway and Respiratory Function: Patent airway with normal (patient baseline) respiratory exam Cardiovascular Function: Hemodynamically Stable Hydration Status: Adequately Hydrated Nausea & Vomiting: No Nausea or Vomiting Pain: Pain is Moderate or Severe Postoperative Pain Management: Pain being addressed with medication Peripheral Nerve Block: Patient did not receive a nerve block
[2023-05-27] MEDS: oxyCODONE 5 mg/Acetaminophen 325 mg TAB PO (12:48)
[2023-05-27] MEDS: Normal Saline 10 ML VIAL IJ (13:59)
[2023-05-27] MEDS: Droperidol 5 MG/2 ML VIAL 0.625 MG IVP (14:00)
== END 2023-05-27 14:43 | disposition home or self-care (01) ==
PROVIDERS: PCP Nurse Practitioner Family; Visit Provider Obstetrics & Gynecology
PROC: (CPT 58661; principal; 2023-05-27 09:30)
DX: Z30.2 Encounter for sterilization (principal); Z30.432 Encounter for removal of intrauterine contraceptive device; N83.8 Other noninflammatory disorders of ovary, fallopian tube and broad ligament
CPT/HCPCS: 58661; 58301; 81025; 88302; J1100; J1790; J1885; J2001; J2060; J2405; J2704; J3010

== ENCOUNTER → 2024-06-21 01:04 | Outpatient (CLI) | payer OTHER, SELFPAY ==
--- NOTE | 2024-06-21 | DI.RAD_ITS ---
Exam(s) XR LUMBAR SPINE COMPLETE EXAM: XR LUMBAR SPINE COMPLETE CLINICAL HISTORY: PAIN IN R LSPINE REGION OF BACK, M54.50. TECHNIQUE: 2D digital imaging was performed. COMPARISON: No exams were available for comparison FINDINGS: Five views No evidence of fracture, listhesis, nor pars defects and there is no disc space narrowing. Bone dens ity normal. No osseous lesions. Facet joints appear unremarkable. Sacroiliac joints appear unremar kable. IMPRESSION: No significant radiographic findings on these five views of the lumbosacral spine. DATA REPOSITORY: RADIATION DOSE DELIVERED:
== END ==
PROVIDERS: PCP Nurse Practitioner Family; Visit Provider Nurse Practitioner Family
DX: M54.50 Low back pain, unspecified (principal)
CPT/HCPCS: 72110

== ENCOUNTER 2024-06-22 01:29 | Outpatient (CLI) | payer OTHER, SELFPAY ==
[2024-06-22 14:42] LABS: Abs Immature Grans 0.01 10^3/uL (0.0-0.06); Absolute Basophil Count 0.09 10^3/uL (0.0-0.2); Absolute Eosinophil Count 0.06 10^3/uL (0.0-0.7); Absolute Monocyte Count 0.63 10^3/uL (0.1-0.8); Absolute Neutrophil Count 3.77 10^3/uL (1.2-6.7); Basophils % 1.5 %; HCT 37.9 % (36.0-46.0); HGB 12.5 g/dL (11.2-15.7); Immature Grans % 0.2 %; Lymphocytes % 24.8 %; MCH 30.7 pg (27.0-33.0); MCV 93 fL (80-95); MPV 10.2 fL (8.0-11.0); Monocytes % 10.4 %; Neutrophils % 62.1 %; Platelet Count 228 10^3/uL (130-400); RBC 4.07 10^6/uL (3.93-5.22); RDW 12.4 % (11.7-14.6); RDW-SD 42.8 fL; WBC 6.06 10^3/uL (4.4-10.8)
[2024-06-22 15:32] LABS: ALT 20 U/L (14-59); AST 16 U/L (15-37); Albumin 3.9 g/dL (3.4-5.0); Alkaline Phosphatase 48 U/L (46-116); Anion Gap 8.8 mmol/L (3-11); BUN 10 mg/dL (7-18); Bilirubin, Total 0.51 mg/dL (0.2-1.0); CO2 28.2 mmol/L (21.0-32.0); CREATININE 0.8 mg/dL (0.55-1.02); Calcium 9.1 mg/dL (8.5-10.1); Chloride 104 mmol/L (98-107); Estimated GFR 91.97 (mL/min/1.73m2); Glucose 82 mg/dL (74-106); Potassium 3.8 mmol/L (3.5-5.1); Sodium 141 mmol/L (136-145); TSH (W/Ref FT4) 2.34 uIU/mL (0.36-3.74); Total Protein 7.8 g/dL (6.4-8.2); Vitamin D 25 Total 41.3 ng/mL (30-100)
[2024-06-23 10:36] LABS: Lyme Ab w Rflx to Lyme Confirm Negative (Negative)
== END 2024-06-22 01:30 | disposition home or self-care (01) ==
LOC: LBO 01:29
PROVIDERS: PCP Nurse Practitioner Family; Visit Provider Internal Medicine
DX: R53.83 Other fatigue (principal); C50.212 Malignant neoplasm of upper-inner quadrant of left female breast; Z17.0 Estrogen receptor positive status [ER+]; Z79.899 Other long term (current) drug therapy
CPT/HCPCS: 36415; 80053; 82306; 84443; 85025; 86618

== ENCOUNTER 2024-08-22 02:09 | Outpatient (CLI) | payer OTHER, SELFPAY ==
--- NOTE | 2024-08-22 07:15 | DI.US_ITS ---
Exam(s) US BREAST LT COMPLETE MG MAMMO SCREENING 60 MIN DUR EXAM: MG MAMMO SCREENING 60 MIN DUR and U/S breast LT complete CLINICAL HISTORY: breast cancer screening, BREAST CANCER, C50.919. TECHNIQUE: Craniocaudal and mediolateral oblique Full Field Digital Mammography views with Computer Aided Diagnosis followed by Tomosynthesis and left breast ultrasound. All 4 quadrants of the left br east were evaluated sonographically in addition to the axilla and retroareolar regions. COMPARISON: Comparison is made with prior examinations. FINDINGS: Mammography/Tomosynthesis: Masses/Architectural Distortion: There are post lumpectomy changes again seen in the left breast. No suspicious masses or new areas of architectural distortion are present. Microcalcifictions: No suspicious pleomorphic-type are seen. Skin Thickening/Nipple Retraction: None. Complete left breast US: Echotexture: Normal appearance of the glandular tissue. Shadowing: No suspicious foci. Cyst: None. Solid lesions: There is again seen and stable hypoechoic radially oriented nodule at the 1 to 2 o'arron ck position of the left breast 1-2 cm from the nipple. No new solid lesions are seen. Ductal dilation: None. IMPRESSION: 1. No evidence for malignancy is seen at this time. 2. A six-month follow-up complete left breast ultrasound is recommended. Yearly mammography is recom mended. 3. The findings were discussed with the patient on the date of the examination. BI-RADS Category 3 - 6 month - Probably Benign Finding: Recommend follow-up complete left breast ultr asound in 6 months Breast Density - Category C - Heterogeneously dense Breast density Category C or D implies that the patient has dense breast tissue. Dense breast tissue can make it harder to find cancer on a mammogram. Dense breast tissue is also associated with an incr eased risk of breast cancer. This information about the result of the mammogram report was provided to the patient to raise their awareness. Use this report when you speak with the patient about their risks for breast cancer, which includes their family history. At that time, you may recommend additional screening tests (Ultrasoun d or MRI) as these tests may add significant information. A negative radiographic report should not delay biopsy if a dominant or clinically suspicious mass is present. Up to ten percent of cancers are not identified on mammography. A negative report may reinforce clinical impression. Adenosis and dense breasts may obscure an underlying neoplasm. False positive reports average 6 to 10%. Patient will receive a letter notifying them of these results.
== END 2024-08-22 02:29 ==
LOC: DI 02:09
PROVIDERS: PCP Nurse Practitioner Family; Visit Provider Obstetrics & Gynecology
DX: N64.89 Other specified disorders of breast (principal); C50.912 Malignant neoplasm of unspecified site of left female breast; Z12.31 Encounter for screening mammogram for malignant neoplasm of breast
CPT/HCPCS: 76642; 77063; 77067

== ENCOUNTER 2024-09-05 03:11 | Outpatient (CLI) | payer OTHER, SELFPAY ==
[2024-09-05 15:03] LABS: Abs Immature Grans 0.02 10^3/uL (0.0-0.06); Absolute Eosinophil Count 0.03 10^3/uL (0.0-0.7); Absolute Lymphocyte Count 1.71 10^3/uL (1.2-3.4); Absolute Monocyte Count 0.78 10^3/uL (0.1-0.8); Basophils % 1.4 %; Eosinophils % 0.4 %; HCT 37.3 % (36.0-46.0); HGB 12.4 g/dL (11.2-15.7); Immature Grans % 0.3 %; Lymphocytes % 23.6 %; MCH 30.9 pg (27.0-33.0); MCHC 33.2 % (32.0-36.0); MCV 93 fL (80-95); MPV 10.2 fL (8.0-11.0); Monocytes % 10.8 %; Neutrophils % 63.5 %; Platelet Count 273 10^3/uL (130-400); RBC 4.01 10^6/uL (3.93-5.22); RDW 13.2 % (11.7-14.6); WBC 7.24 10^3/uL (4.4-10.8)
== END 2024-09-05 03:12 | disposition home or self-care (01) ==
LOC: LBO 03:11
PROVIDERS: PCP Nurse Practitioner Family; Visit Provider Obstetrics & Gynecology
DX: Z01.818 Encounter for other preprocedural examination (principal)
CPT/HCPCS: 36415; 86850; 86900; 86901; 85025

== ENCOUNTER 2024-09-07 06:05 | Day surgery (SDC) | payer OTHER, SELFPAY ==
[2024-09-07] VITALS (15 sets, daily range): BP systolic 94–118; BP diastolic 59–75; PULSE 64–92; RESP 12–17; TEMP 36.3–37; O2SAT 98–100; BMI 26.2
--- NOTE | 2024-09-07 06:20 | ANES.PREOP_ITS ---
General Info Date of Service Date Performed: 09/07/24 Height: 5 ft 5 in Weight: 71.327 kg Body Mass Index (BMI): 26.2 Surgical Procedure: Operation Date: 09/07/24 07:40 Proposed Procedure Side Surgeon p Dilation & Curettage with Hysteroscopy, Myosure Julieta Arita DO Meds Allergies and Home Medications Allergies Allergy/AdvReac Type Severity Reaction Status Date / Time metronidazole Allergy Severe Rash Verified 09/07/24 06:31 amoxicillin trihydrate (From Allergy RASH Verified 09/07/24 06:31 Augmentin) potassium clavulanate (From Allergy RASH Verified 09/07/24 06:31 Augmentin) diltiazem AdvReac HEADACHES Verified 09/07/24 06:31 Home Medication ?Medication ?Instructions ?Recorded Vitamin B-2 100 mg PO HS 10/14/12 multivitamin (Daily Multi-Vitamin 1 ea PO HS 10/18/14 tablet) lactobacillus combination no.9 4 25 mmu cells PO HS 06/27/20 billion cell capsule (Adult 50 Plus Probiotic) calcium 600 mg (as 0.5 cap PO HS 12/10/22 carbonate)-vitamin D3 12.5 mcg (500 unit) capsule (Calcium with Vit D3) tamoxifen 20 mg tablet 20 mg PO HS 05/08/23 biotin 10,000 mcg capsule 10,000 mcg PO DAILY 08/12/23 gabapentin 100 mg capsule 200 mg PO HS 08/12/23 acetaminophen 650 mg 650 mg PO Q12H 08/16/24 tablet,extended release (Tylenol Arthritis Pain) escitalopram oxalate 10 mg tablet 15 mg PO DAILY 08/16/24 (Lexapro) ibuprofen 800 mg tablet 800 mg PO Q8H PRN heavy menses #90 08/16/24 tabs Current Visit Medications: Current Medications Generic Name Dose Route Start Last Admin Trade Name Freq PRN Reason Stop Dose Admin Ringer's Solution 1,000 mls @ 125 mls/hr 09/07/24 06:00 IV 09/07/24 23:59 INFUSION JULIEN IV Miscellaneous Supplies 1 each 09/07/24 06:00 Iv Access IV 09/07/24 23:59 DIRECTED JULIEN Sodium Chloride 0 ml 09/07/24 06:00 Normal Saline Flush 10 Ml Syr IV 09/07/24 23:59 PRN PRN Sodium Chloride 0 ml 09/07/24 06:00 Normal Saline 10 Ml Vial IJ 09/07/24 23:59 DIRECTED PRN Sterile Water 0 ml 09/07/24 06:00 Water,Injection,Sterile 10 Ml Vial IJ 09/07/24 23:59 DIRECTED PRN PFSH Active Problems Active Problems: Problem Status Onset Code Endometrial thickening on ultrasound Acute R93.89 Abnormal uterine bleeding Acute N93.9 Abnormal mammogram of left breast Acute R92.8 Fullness of breast Acute N64.89 Left axillary fullness Acute R22.32 Depression with anxiety Acute F41.8 Personal history of cervical dysplasia Acute 05/19/17 Z87.410 Enlarged uterus Acute N85.2 Pelvic floor relaxation Acute N81.89 Abnormal mammogram Resolved R92.8 Breast cancer Chronic C50.919 Irregular menses Acute N92.6 Anxiety about health Acute F41.8 Stress Acute F43.9 Medical History Medical History Colon cancer screening History of palpitations Per pt. states when she gets stressed or overtired, she will have palpita tions did not require work-up ASCUS (atypical squamous cells of undetermined significance) on gynecologic Papanicolaou smear complicating , antepartum UTI (urinary tract infection) Depression Menstrual irregularity since 03/2014. Nl TSH/Prolactin. 09/2014 Started on OCPs. Migraine complex migraine Surgical History Surgical History Tubal ligation status History of lumpectomy of left breast section 2005 @ 36w for fetus with cerebral teratoma. shortly after Tobacco Smoking/Tobacco Use Status: Never Alcohol Alcohol Intake: never Substance Use Substance use: Never Substance use type: does not use Vital Signs and Lab Results Vital Signs Most Recent Vital Signs in EMR: Temp Pulse Resp BP Pulse Ox 37.0 C 92 H 17 118/73 98 09/07/24 06:18 09/07/24 06:18 09/07/24 06:18 09/07/24 06:18 09/07/24 06:18 Point of Care Results Point of Care Results: POC- Test(urine) Negative 09/07/24 06:30 Lab Results Blood Type / Crossmatch: Antibody Screen NEGATIVE 09/05/24 Complete Blood Count: White Blood Count 7.24 10^3/uL (4.4-10.8) 10/07/24 14:40 Red Blood Count 4.01 10^6/uL (3.93-5.22) 09/05/24 14:40 Hemoglobin 12.4 g/dL (11.2-15.7) 09/05/24 14:40 Hematocrit 37.3 % (36.0-46.0) 09/05/24 14:40 Platelet Count 273 10^3/uL (130-400) 09/05/24 14:40 Complete Metabolic Panel: No Data to Display Liver Function Panel: No Data to Display Coagulation Panel: No Data to Display Cardiac Panel: No Data to Display Arterial Blood Gas: No Data to Display Venous Blood Gas: No Data to Display Pancreas Panel: No Data to Display Thyroid Panel: No Data to Display Infectious Disease: No Data to Display Blood Cultures: No Data to Display Toxicology Panel: No Data to Display Panel: No Data to Display Anesthesia Assessment and Plan Anesthesia History Personal History: No History of Anesthesia Complications Family History: No Family History of Anesthesia Complications Exercise Tolerance Exercise Tolerance: Metabolic Equivalents>4 Pertinent Negatives Pertinent Negatives: No Symptoms of GERD, No Major Cardiovascular Symptoms or Complaints, No Major Pulmonary Symptoms or Complaints, No History of CVA/TIA and Other (Hx of migraines ) Cardiac & Pulmonary Exam Cardiac Exam: Normal S1/S2 Heart Sounds Pulmonary Exam: Clear Bilateral Breath Sounds Implantable Cardiac Device Does patient have a Pacemaker or an ICD?: No Airway Exam Known Difficult Airway: No Mallampati Class: 2 Mouth Opening: Normal (> 3cm) Thyromental Distance: Less than 3 cm Neck Range of Motion: Full ROM Neck Circumference: Normal Teeth Condition: Normal Dentition ASA Classification ASA Score: ASA 2 Emergency Case?: No NPO Status NPO Status: NPO Clears >2 hours, Solids >8 hours Status Status: Negative HCG Anesthesia Plan Resuscitation Status: Full Code Anesthesia Technique: General Anesthesia Airway Planned: Natural Airway Monitors Used: Standard Monitors Preoperative Comments:: 44 yo for d/c Sig PMHx: palpitations (anxiety related), breast CA (lumpectomy), d epression/anxiety (lexapro), never smoker. Previous Anes: - lap salping, no airway documented - but ETT, persistent cough in pacu. - d/c, midaz, ketamine, dexmed, prop, natural airway, no issues Plan general anesthesia with natural airway, discussed possible need for LMA. Sedline, adequate IV access.
[2024-09-07] MEDS: Lactated Ringers 1,000 ML 125 ML IV (06:38)
--- NOTE | 2024-09-07 08:10 | ENDO_PTH ---
PATIENT: Janelle Luna LOC: [facility] U#:[id number] AGE/SX: 44/F ROOM: RE09/07/[address]: Julieta Arita DO : 1980 BED: DIS: 09/07/2024 SPEC #: [id number] RECD: 09/07/24 12:46 STATUS: SOUEveline REQ #: [id number] ESTELA: 09/07/24 08:[address]: Julieta Arita DEPT: Surgical Specimen RECD BY: Racquel Edaurdo ENTERED: 09/07/24 12:48 SP TYPE: Endo OTHR DR: RAHUL GARCIA NP Tissues: 1 - ENDOCERVICAL BX/CURRETTE 2 - ENDOMETRIUM BX/CURRETTE Procedures: GROSS AND MICRO LEVEL 4 Comments: [id number]
[2024-09-07] MEDS: Silver Nitrate Stick 1 EACH (08:15)
--- NOTE | 2024-09-07 08:29 | ROE_ITS ---
Date of service: 09/07/24 Time of Service: 08:29 Operative Note Operative Note DATE OF PROCEDURE: 09/07/24 PRE-OP DIAGNOSIS: Thickened endometrium POST-OP DIAGNOSIS: same PROCEDURE: Hysteroscopy with dilation and curettage SURGEON: Julieta Arita ANESTHESIA TYPE: General:No Airway Refer to Anesthesia Record ESTIMATED BLOOD LOSS: 10 PATHOLOGY: other (1. Endocervical curettage 2. Endometrial curettage) COMPLICATIONS: None Patient was transported to: same day Patient's condition: stable Indications: Thickened endometrium and bleeding Findings: Normal-appearing cervix, normal-appearing endocervical canal, smooth regular endometrial cavity. Tubal ostia visualized. Procedure Description: After full informed consent was obtained, patient taken the operating suite with IV running. She was placed in the dorsal supine position and anesthesia admin istered. She was then placed in the modified dorsolithotomy position and prepped and draped in the usual sterile fashion. A timeout was held. Bladder was emptied for approximate 100 cc of clear yellow urine. At this point exam under anesthesia revealed a uterus that is midline and mobile. Speculum inserted to the vaginal vault and at the cervical os identified. Single-tooth tenaculum was used to grasp the anterior lip of the cervix and cervical os dilated to the point that a 4 mm hysteroscope could be passed without difficulty. With instillation of normal saline, the endometrial and end ocervical canals were visualized. All appeared to be smooth and regular with no evidence of polyp or fibroid. At this point the hysteroscope portion was discontinued and fluid deficit was approximately 50 cc. Endocervical followed by endometrial curettings were performed without difficulty. The single-tooth tenaculum was removed and puncture sites were cauterized with silver nitrate to achieve hemostasis. The speculum was removed and the patient was returned to the dorsal supine position. She woke from anesthesia without difficulty. She was taken the postanesthesia care unit in stable condition. Complications: None apparent Fluids: Crystalloid per anesthesia Findings: Smooth regular endometrial cavity and endocervical cavity Pathology: 1. Endocervical curettage 2. Endometrial curettage
--- NOTE | 2024-09-07 08:43 | W.ANESPOSTOP ---
Postoperative Evaluation Date, Time and Location Date Performed: 09/07/24 Time Performed: 08:43 Patient Location: Day Surgery Unit Vital Signs Most Recent Imported Vital Signs: Most Recent Vital Signs Temp Pulse Resp BP Pulse Ox 36.7 C 64 12 100/65 100 09/07/24 08:38 09/07/24 08:40 09/07/24 08:41 09/07/24 08:40 09/07/24 08:41 Pain Score Most Recent Pain Score: Most Recent Pain Score Pain Level 0 09/07/24 08:38 Assessment Mental Status: Awake (Alert & Oriented to Patient Baseline) Airway and Respiratory Function: Patent airway with normal (patient baseline) respiratory exam Cardiovascular Function: Hemodynamically Stable Hydration Status: Adequately Hydrated Nausea & Vomiting: No Nausea or Vomiting Pain: Pain is tolerable per patient Peripheral Nerve Block: Patient did not receive a nerve block
== END 2024-09-07 09:40 | disposition home or self-care (01) ==
PROVIDERS: PCP Nurse Practitioner Family; Visit Provider Obstetrics & Gynecology
PROC: 0UDB8ZZ Extraction of Endometrium, Via Natural or Artificial Opening Endoscopic (ICD-10-PCS; CPT 58558; principal; 2024-09-07 07:30)
DX: N93.9 Abnormal uterine and vaginal bleeding, unspecified (principal); R93.89 Abnormal findings on diagnostic imaging of other specified body structures; Z85.3 Personal history of malignant neoplasm of breast
CPT/HCPCS: 58558; 81025; 88305; J0131; J1100; J1885; J2250; J2405; J2704

== ENCOUNTER 2025-04-05 14:04 | Outpatient (CLI) | payer OTHER, SELFPAY ==
--- NOTE | 2025-04-05 06:00 | DI.RAD_ITS ---
Exam(s) XR PAIN CLINIC LUMBAR SP 2V EXAM: XR PAIN CLINIC LUMBAR SP 2V CLINICAL HISTORY: Dx: Lumbar Spondylosis. TECHNIQUE: Fluoroscopy was provided for the referring physician for guidance with performing pain cl inic injection procedure. COMPARISON: No exams were available for comparison FINDINGS: Please see procedure note for details. Fluoro time: 26 point seconds RADIATION DOSE DELIVERED: stefan Santoyo=7.52 mGy
[2025-04-05 15:00] VITALS: BP 115/80; PULSE 80; RESP 14; TEMP 36.6; O2SAT 98
[2025-04-05 15:20] VITALS: PULSE 88; O2SAT 99
--- NOTE | 2025-04-05 15:34 | PDOC.PAIN ---
Date of service: 04/05/25 Time of Service: 15:38 Pain Managment Procedure Note Procedure Note Procedure Note: Diagnostic Lumbar Facet Joint Injection ? Location: Bilateral Lumbar Facet Joints ? Levels: L5-S1 ? Pre-procedure Diagnosis: M47.817 Spondylosis without myelopathy or radiculopathy, lumbosacral region M47.816 Spondylosis without myelopathy or radiculopathy, lumbar region ? Post-procedure Diagnosis:? The same as above ? Sedation:? None ? Estimated blood loss:? less than 2 cc ? Surgeon: Alexis Alberto MD COMMENT: Pain 6/10 .Decision was made to proceed with intra-articular facet injections for the possibility of not having to do medial branch blocks and radiofrequency ablation if patient get long lasting relief (> 3 months). ? Procedure Detail:? The procedure and potential risks were explained to the patient and informed written consent was obtained. The patient was escorted to the procedure room and placed in the prone position. Pillows were utilized for proper positioning and comfort.? Time out was performed in the procedure room with nursing staff confirming the patient's identity, procedure to be performed, allergies, and any blood thinning or anti-platelet medications.? Sterile technique was maintained throughout the procedure.? The patient's lumbosacral area was prepped with chlorhexidine and draped in a sterile fashion. Lidocaine 1% was used to anesthetize the skin. An oblique fluoroscopic view was obtained, with visualization of the facet joint.? A 22gauge, Quincke needle was gently advanced through the facet capsule.? Needle placement was confirmed with fluoroscopy in AP, oblique, and lateral views by injecting 0.25cc of contrast.? 20 mg of Depomedrol and 0.5ml of 0.5% bupivacaine was injected into the capsule at L5-S1 Bilateral. The patient tolerated the procedure well and was discharged home with instructions. Permanent images saved and recorded. Plan:? Follow up prn COMMENT:Pain went from 6/10 to 3/10. Pain? 50 % better. Will use this as both diagnostic and potentially therapeutic.? With short-term relief from the level that it was not long-lasting then we will proceed with for LMBB #2 and possible radiofrequency ablation Coding Conscious Sedation used for procedure: No CPT Codes: LMBB (includes Fluoro) Lumbar/Sacral, single lvl *BILATERAL* - [id number] ([id number]~G5) Additional Codes: Date of Service (94120) Date of service: 04/05/25
[2025-04-05 15:35] VITALS: PULSE 90; O2SAT 100
[2025-04-05] MEDS: Bupivacaine 0.5% Pres-Free 10 ML VIAL IJ (15:39)
[2025-04-05] MEDS: Nerve Block Tray 1 EACH MC (15:39)
[2025-04-05] MEDS: methylPREDNISolone ACETATE 80 MG/ML VIAL IJ (15:39)
[2025-04-05] MEDS: Omnipaque 240 MG/ML 50 ML BTL IJ (15:39)
== END 2025-04-05 14:05 | disposition home or self-care (01) ==
LOC: PC 14:06
PROVIDERS: PCP Nurse Practitioner Family; Visit Provider Anesthesiology Pain Medicine
DX: M47.817 Spondylosis without myelopathy or radiculopathy, lumbosacral region (principal); M47.816 Spondylosis without myelopathy or radiculopathy, lumbar region
CPT/HCPCS: 64493; 72100; J0665; J1010; Q9967

== ENCOUNTER 2025-06-26 05:59 | Day surgery (SDC) | payer OTHER, SELFPAY ==
--- NOTE | 2025-06-25 19:08 | W.ANESPRE ---
General Info Date of Service Date Performed: 06/26/25 Height: 5 ft 5 in Weight: 74.843 kg Body Mass Index (BMI): 27.4 Surgical Procedure: Operation Date: 06/26/25 07:40 Proposed Procedure Side Surgeon p Cholecystectomy Laparoscopic Jaycee Amado MD Meds Allergies and Home Medications Allergies Allergy/AdvReac Type Severity Reaction Status Date / Time metronidazole Allergy Severe Rash Verified 06/26/25 06:18 amoxicillin trihydrate (From Allergy RASH Verified 06/26/25 06:18 Augmentin) potassium clavulanate (From Allergy RASH Verified 06/26/25 06:18 Augmentin) diltiazem AdvReac HEADACHES Verified 06/26/25 06:18 Home Medication ?Medication ?Instructions ?Recorded Vitamin B-2 100 mg PO HS 10/14/12 multivitamin (Daily Multi-Vitamin 1 ea PO HS 10/18/14 tablet) lactobacillus combination no.9 4 25 mmu cells PO HS 06/27/20 billion cell capsule (Adult 50 Plus Probiotic) calcium 600 mg (as 0.5 cap PO HS 12/10/22 carbonate)-vitamin D3 12.5 mcg (500 unit) capsule (Calcium with Vit D3) ibuprofen 800 mg tablet 800 mg PO Q8H PRN heavy menses #90 08/16/24 tabs vit C 30 mg-s.hernandez 250 mg-celery 1 cap PO DAILY 09/22/24 seed 75 mg-grape seed extrt capsule (Tart Hernandez) acetaminophen 500 mg tablet 1,000 mg PO BID PRN 03/20/25 hydroxyzine HCl 25 mg tablet 25 mg PO QHS PRN 03/20/25 tamoxifen 20 mg tablet 20 mg PO DAILY 03/20/25 cyclobenzaprine 5 mg tablet 5 mg PO TID PRN 05/19/25 escitalopram oxalate 10 mg tablet 10 mg PO DAILY 05/19/25 (Lexapro) gabapentin 100 mg capsule 100 mg PO HS 05/19/25 prazosin 1 mg capsule 1 mg PO QHS 05/19/25 zolpidem 5 mg tablet 5 mg PO QHS 05/19/25 celecoxib 100 mg capsule 100 mg PO BID 05/31/25 coQ10 (ubiquinol) 100 mg capsule 100 mg PO DAILY 06/22/25 magnesium 250 mg tablet 500 mg PO DAILY 06/22/25 hydrocodone 5 mg-acetaminophen 325 1 tab PO Q6H PRN pain #10 tabs 06/26/25 mg tablet Current Visit Medications: Current Medications Generic Name Dose Route Start Last Admin Trade Name Jaquan PRN Reason Stop Dose Admin Ringer's Solution 1,000 mls @ 80 mls/hr 06/26/25 06:00 IV 06/26/25 23:59 INFUSION JULIEN Cefazolin Sodium/Dextrose 2 gm in 50 mls @ 100 mls/hr 06/26/25 06:00 Ancef Duplex IVPB 06/26/25 23:59 PREOP JULIEN IV Miscellaneous Supplies 1 each 06/26/25 06:00 Iv Access IV 06/26/25 23:59 DIRECTED JULIEN Olanzapine 10 mg 06/26/25 06:27 Olanzapine 10 Mg Tab PO 06/26/25 06:28 NOW ONE Sodium Chloride 0 ml 06/26/25 06:00 Normal Saline Flush 10 Ml Syr IV 06/26/25 23:59 PRN PRN Sodium Chloride 0 ml 06/26/25 06:00 Normal Saline 10 Ml Vial IJ 06/26/25 23:59 DIRECTED PRN Sterile Water 0 ml 06/26/25 06:00 Water,Injection,Sterile 10 Ml Vial IJ 06/26/25 23:59 DIRECTED PRN PFSH Active Problems Active Problems: Problem Status Onset Code Body aches Acute R52 Low back pain Acute M54.50 History of breast cancer Acute Z85.3 Symptomatic cholelithiasis Acute K80.20 Chronic pain Chronic G89.29 Mechanical low back pain Acute M54.59 Endometrial thickening on ultrasound Acute R93.89 Abnormal uterine bleeding Acute N93.9 Abnormal mammogram of left breast Acute R92.8 Fullness of breast Acute N64.89 Left axillary fullness Acute R22.32 Depression with anxiety Acute F41.8 Personal history of cervical dysplasia Acute 05/19/17 Z87.410 Enlarged uterus Acute N85.2 Pelvic floor relaxation Acute N81.89 Abnormal mammogram Resolved R92.8 Breast cancer Chronic C50.919 Irregular menses Acute N92.6 Anxiety about health Acute F41.8 Stress Acute F43.9 Medical History Medical History Trismus Fatigue Costal chondritis Enthesopathy Multiple joint pain Calculus of gallbladder without cholecystitis without obstruction (~01/2025) IUD (intrauterine device) in place Tendonitis PONV (postoperative nausea and vomiting) Palpitations Migraine headache with aura Acquired lymphedema Lumbar back pain Family hx of colon cancer Carpal tunnel syndrome Bitten by dog Back pain Anxiety and depression Anxiety Colon cancer screening History of palpitations Per pt. states when she gets stressed or overtired, she will have palpitations did not require work-up ASCUS (atypical squamous cells of undetermined significance) on gynecologic Papanicolaou smear complicating , antepartum UTI (urinary tract infection) Depression Menstrual irregularity since 03/2014. Nl TSH/Prolactin. 09/2014 Started on OCPs. Migraine complex migraine Surgical History Surgical History H/O tooth extraction H/O cervical polypectomy H/O lumpectomy History of colonoscopy Tubal ligation status History of lumpectomy of left breast section 2004 @ 36w for fetus with cerebral teratoma. shortly after Tobacco Smoking/Tobacco Use Status: Never Passive smoking exposure: Yes Alcohol Alcohol Intake: current Alcohol intake frequency: holidays/special occasions only Substance Use Substance use: Never Substance use type: does not use Vital Signs and Lab Results Vital Signs Most Recent Vital Signs in EMR: Temp Pulse Resp BP Pulse Ox 36.9 C 94 H 14 110/82 98 06/26/25 06:24 06/26/25 06:24 06/26/25 06:24 06/26/25 06:24 06/26/25 06:24 Anesthesia Assessment and Plan Anesthesia History Personal History: PONV and Delayed Emergence Family History: No Family History of Anesthesia Complications Exercise Tolerance Exercise Tolerance: Metabolic Equivalents>4 Pertinent Negatives Pertinent Negatives: No Symptoms of GERD, No Major Cardiovascular Symptoms or Complaints, No Major Pulmonary Symptoms or Complaints and No History of CVA/TIA Cardiac & Pulmonary Exam Cardiac Exam: Normal S1/S2 Heart Sounds Pulmonary Exam: Clear Bilateral Breath Sounds Implantable Cardiac Device Does patient have a Pacemaker or an ICD?: No Airway Exam Known Difficult Airway: No Mallampati Class: 3 Mouth Opening: Normal (> 3cm) Thyromental Distance: Less than 3 cm Neck Range of Motion: Full ROM Neck Circumference: Normal Teeth Condition: Normal Dentition (mentioned broken L side back molar ) ASA Classification ASA Score: ASA 2 Emergency Case?: No NPO Status NPO Status: NPO Clears >2 hours, Solids >8 hours Status Status: Negative HCG Anesthesia Plan Resuscitation Status: Full Code Anesthesia Technique: General Anesthesia Airway Planned: Endotracheal Tube Monitors Used: Standard Monitors Preoperative Comments:: 45 yo for lap colin Sig PMHx: palpitations (anxiety related), breast CA (lumpectomy), depression/anxiety (lexapro), never smoker. Previous Anes: PONV - lap salping, no airway documented - but ETT, persistent cough in pacu. - d/c, midaz, ketamine, dexmed, prop, natural airway, no issues prep olanzapine for PONV.
[2025-06-26] VITALS (16 sets, daily range): BP systolic 104–117; BP diastolic 63–82; PULSE 71–105; RESP 12–29; TEMP 36.5–37; O2SAT 93–99; BMI 27.4
[2025-06-26] MEDS: OLANZapine 10 MG TAB PO (07:09)
[2025-06-26] MEDS: Lactated Ringers 1,000 ML 80 ML IV (07:10)
[2025-06-26] MEDS: ceFAZolin 2 GM/50 ML BAG IVPB (07:41)
--- NOTE | 2025-06-26 07:50 | W.PM.DSUDISC ---
Date of service: 06/26/25 Discharge Plan Disposition Patient Disposition: Home Condition: Stable Discharge Details Attending Provider: Jaycee Amado Primary Care Provider: RAHUL GARCIA Home Meds and New Rx's Prescriptions: New hydrocodone-acetaminophen 5-325 mg tablet 1 tab PO Q6H PRN (Reason: pain) Qty: 10 0RF No Action tamoxifen 20 mg tablet 20 mg PO DAILY Patient Comments: 05/08/23- Pt started medication on 05/05/23. Tart Hernandez [id number] mg capsule 1 cap PO DAILY acetaminophen 500 mg tablet 1,000 mg PO BID PRN hydroxyzine HCl 25 mg tablet 25 mg PO QHS PRN Adult 50 Plus Probiotic 4 billion cell capsule 25 mmu cells PO HS calcium carbonate-vitamin D3 [Calcium 600 with Vitamin D3] 600 mg-12.5 mcg (500 unit) capsule 0.5 cap PO HS ibuprofen 800 mg tablet 800 mg PO Q8H MDD 3 PRN (Reason: heavy menses) Qty: 90 1RF celecoxib 100 mg capsule 100 mg PO BID VITAMIN B-2 100 MG tablet 100 mg PO HS Patient Comments: 4 TABS QD 07/03/16 300 mg daily per pt. multivitamin [Daily Multi-Vitamin] 1 EACH tablet 1 ea PO HS escitalopram oxalate [Lexapro] 10 mg tablet 10 mg PO DAILY cyclobenzaprine 5 mg tablet 5 mg PO TID PRN Rx Instructions: Take 1-2 tablets, three times a day, by mouth, as needed for jaw pain. gabapentin 100 mg capsule 100 mg PO HS Rx Instructions: take 1-2 capsules as needed, three times a day prazosin 1 mg capsule 1 mg PO QHS Rx Instructions: take 1-3 capsules by mouth in the evening as needed for sleep and nightmares zolpidem 5 mg tablet 5 mg PO QHS magnesium 250 mg tablet 500 mg PO DAILY coQ10 (ubiquinol) 100 mg capsule 100 mg PO DAILY Discharge Instructions Additional Instructions: Shower in 48 hours. Wash gently over steri-strips with soapy hands, rinse, pat dry. Don't peel strips or submerge them under water. The longer they stay on, the nicer the scars will heal. Ok to walk, climb stairs, and resume normal activities of daily living. Do not lift/push/pull more than 20lb for 4 weeks. Diet as tolerated, allow your body to naturally make adjustments in the bile flow after surgery. Eat your normal diet. Loose stools may occur. We will discuss them at follow up if still present in 2 weeks. Call or return for fever or incisional problems. Activity:: as above Shower/Bathe:: 48 hours Diet:: As Tolerated Discharge Orders Discharge Orders: Discharge Order (Routine); Ordered 06/26/25 Ordered By: Jaycee Amado DS: Diagnosis Discharge Diagnosis (1) Symptomatic cholelithiasis: Status: Acute
[2025-06-26] MEDS: Bupivacaine 0.5% Pres-Free W/EPI 30 ML VIAL (08:15)
--- NOTE | 2025-06-26 08:47 | GB_PTH ---
PATIENT: Janelle Luna LOC: [facility] U#:[id number] AGE/SX: 45/F ROOM: RE06/26/[address]: Jaycee Amado MD : 1980 BED: DIS: 06/26/2025 SPEC #: [id number] RECD: 06/26/25 12:59 STATUS: CARLOS REQ #: [id number] ESTELA: 06/26/25 08:[address]: Jaycee Amado DEPT: Surgical Specimen RECD BY: Racquel Eduardo ENTERED: 06/26/25 13:00 SP TYPE: GB OTHR DR: RAHUL GARCIA NP Tissues: 1 - GALLBLADDER Procedures: GROSS AND MICRO LEVEL 3 Comments: [id number]
--- NOTE | 2025-06-26 09:07 | W.PM.OP ---
Operative Note Operative Note Refer to Anesthesia Record Procedure Description: Preoperative diagnosis: Symptomatic cholelithiasis Postoperative diagnosis: Symptomatic cholelithiasis Procedure: Laparoscopic cholecystectomy Surgeon: Jaycee Amado MD Floor Layer Apprentice: CHANTEL Gloria Anesthesia: GETA + local EBL 30mL Specimen: Gallbladder Complications: None Procedure Description: This is a 45-year-old female who presented to the office with chronic abdominal symptoms and gallstones. The evaluation yielded a diagnosis of symptomatic cholelithiasis. Cholecystectomy was indicated. We discussed the procedure risks, benefits, alternatives, and expectations. All of the patient's questions were answered to their satisfaction. Informed consent was obtained and the patient was transferred to the operating room. She was placed supine on the operating table. SCDs were placed and all pressure points were padded appropriately. General anesthesia was induced. The abdomen was clipped prepped and draped in the usual sterile fashion. Timeout was performed. Local anesthetic was infiltrated underneath the umbilicus. An incision was made in the skin and the incision carried down to the umbilical stalk using cautery. The umbilical stalk was elevated using a Ida clamp and the fascia cleared of its fatty tissues. An incision was made in the fascia, and a Aye clamp was used to enter the peritoneum. A finger was used to ensure no structures were adhered to the anterior abdominal wall. A Slaughter trocar was introduced and the abdomen was insufflated to 15 mmHg. Initial laparoscopy confirmed no injury to the intra-abdominal structures. 3 additional 5 mm ports were placed in the upper abdomen under direct visualization. Local anesthetic was infiltrated at each port site. The patient's head was elevated and she was rotated toward the left. The gallbladder was elevated. There were adhesions to the omentum that were taken down with Ligasure device. There was mild edema of the gallbladder, all evidence of chronic cholecystitis. The gallbladder dome was grasped and retracted cephalad. The infundibulum was grasped and retracted laterally and a dissection in Calot's triangle was pursued with a [place] dissector and a suction tool. 2 tubular structures were dissected free and skeletonized. A critical view was obtained and the gallbladder cystic duct and cystic artery were identified and confirmed. The cystic duct and cystic artery were clipped and transected with EndoShears. The gallbladder was then removed from the liver bed with cautery. It was placed into an Endo Catch bag and removed from the abdomen through the umbilicus. The liver bed was examined and hemostasis assured. The patient taken out of reverse Trendelenburg position. The 5 mm ports were removed and the abdomen was desufflated. The umbilical trocar was removed. The umbilical fascia was closed with an 0 Vicryl suture in a [id number] stitch. The remainder of the local anesthetic was infiltrated into the umbilical fascia. The incisions were all closed with interrupted 4-0 Monocryl sutures in subcuticular fashion. The incisions were all washed and dried and Steri-Strips applied. The patient tolerated the procedure well. She extubated in the operating room and transferred to the recovery room in stable condition. There were no complications Date of Procedure: 06/26/25
--- NOTE | 2025-06-26 09:27 | W.ANESPOSTOP ---
Postoperative Evaluation Date, Time and Location Date Performed: 06/26/25 Time Performed: 09:27 Patient Location: PACU Vital Signs Most Recent Imported Vital Signs: Most Recent Vital Signs Temp Pulse Resp BP Pulse Ox 37.0 C 89 17 104/63 95 06/26/25 09:19 06/26/25 09:16 06/26/25 09:16 06/26/25 09:16 06/26/25 09:16 Pain Score Most Recent Pain Score: Most Recent Pain Score Pain Level 0 06/26/25 09:19 Assessment Mental Status: Arousable with meaningful communication Airway and Respiratory Function: Patent airway with normal (patient baseline) respiratory exam Cardiovascular Function: Hemodynamically Stable Hydration Status: Adequately Hydrated Nausea & Vomiting: No Nausea or Vomiting Pain: Pain is tolerable per patient Peripheral Nerve Block: Patient did not receive a nerve block
== END 2025-06-26 10:53 | disposition home or self-care (01) ==
PROVIDERS: PCP Nurse Practitioner Family; Visit Provider Surgery
PROC: 0FT44ZZ Resection of Gallbladder, Percutaneous Endoscopic Approach (ICD-10-PCS; CPT 47562; principal; 2025-06-26 07:30)
DX: K80.20 Calculus of gallbladder without cholecystitis without obstruction (principal)
CPT/HCPCS: 47562; 88304; J0131; J0690; J1100; J1805; J1885; J2371; J2405; J2704; J3475

== ENCOUNTER 2025-07-13 10:29 | Outpatient (CLI) | payer OTHER, SELFPAY ==
--- NOTE | 2025-07-13 15:00 | DI.MRI_ITS ---
Exam(s) MR LOWER JOINT BI WO EXAM: MR LOWER JOINT BI WO CLINICAL HISTORY: BILATERAL HIP PAIN, M25.551 PAIN IN R HIP, M25.552 PAIN IN L HIP TECHNIQUE: Multiplanar multisequence MRI of Pelvis was performed COMPARISON: CR XR LUMBAR SPINE COMPLETE from 06/21/2024 Exam is interpreted without benefit of comparison plain films. FINDINGS: Bones: There is no fracture or contusion pattern. No bone marrow edema is seen. Joints: No significant joint effusion or gross labral defect is present. The SI joints and symphysis pubis are well maintained. Musculotendinous structures: Musculotendinous structures demonstrate no abnormality. Intrapelvic contents: Dominant follicle in the left ovary. IMPRESSION: Normal MRI examination of the bilateral hips. DATA REPOSITORY:
== END 2025-07-13 10:49 ==
LOC: DI 10:29
PROVIDERS: PCP Nurse Practitioner Family; Visit Provider Nurse Practitioner Family
DX: M25.551 Pain in right hip (principal); M25.552 Pain in left hip
CPT/HCPCS: 73721

== ENCOUNTER 2025-07-26 14:57 | Outpatient (CLI) | payer OTHER, SELFPAY ==
--- NOTE | 2025-07-26 15:56 | DI.RAD_ITS ---
Exam(s) XR CERVICAL SPINE COMP 4-5V EXAM: XR CERVICAL SPINE COMP 4-5V CLINICAL HISTORY: M25.511 Pain rt shoulder. TECHNIQUE: 2D digital imaging was performed. Six images were obtained. AP, odontoid, lateral and bilateral oblique images were obtained. COMPARISON: No exams were available for comparison FINDINGS: The odontoid is intact. The lateral masses are well aligned. There is straightening of the normal cervical lordosis. This may be due to muscle spasm or patient positioning. At C5-C6 there is disc space narrowing and small osteophytes. The disc spaces are otherwise well maintained. No acute fracture or subluxation is present. No significant neural foraminal stenosis is present. The cervical thoracic junction is well maintained. The prevertebral soft tissues are unremarkable. Lung apices are clear. IMPRESSION: Mild degenerative changes seen at C5-C6. DATA REPOSITORY: RADIATION DOSE DELIVERED:
--- NOTE | 2025-07-26 15:56 | DI.RAD_ITS ---
Exam(s) XR SHOULDER RT COMPLETE 2+V EXAM: XR SHOULDER RT COMPLETE 2+V CLINICAL HISTORY: M25.511 Pain in RT shoulder. TECHNIQUE: 2D digital imaging was performed of the right shoulder. Five images were obtained. AP, Grashey, Y-view and axillary views were obtained. COMPARISON: No exams were available for comparison FINDINGS: BONES: No acute fracture is present. No bony destructive lesion is seen. JOINTS: No dislocation present. SOFT TISSUE: Normal. IMPRESSION: Unremarkable radiographs of the right shoulder. DATA REPOSITORY: RADIATION DOSE DELIVERED:
== END 2025-07-26 15:17 ==
LOC: DI 14:57
PROVIDERS: PCP Nurse Practitioner Family; Visit Provider Physician Assistant Medical
DX: M25.511 Pain in right shoulder (principal); M50.322 Other cervical disc degeneration at C5-C6 level
CPT/HCPCS: 72050; 73030

== ENCOUNTER → 2025-11-16 00:39 | Outpatient (CLI) | payer OTHER, SELFPAY ==
--- NOTE | 2025-11-16 15:33 | DI.RAD_ITS ---
Exam(s) XR FOOT LT COMPLETE XR FOOT RT COMPLETE EXAM: XR FOOT RT COMPLETE CLINICAL HISTORY: PLANTAR FASCITIS JOEL, M72.2, FIBROMATOSIS, CHRONIC PLANTAR PAIN,. TECHNIQUE: 2D digital imaging was performed. Three views of both feet. COMPARISON: CR XR FOOT LT COMPLETE from 11/16/2025 FINDINGS: BONES: No acute fracture is present. No bony destructive lesion is seen. JOINTS: No dislocation present. No significant degenerative changes. The plantar arches are maintained. SOFT TISSUE: Normal. IMPRESSION: Unremarkable radiographs of the bilateral feet. DATA REPOSITORY: RADIATION DOSE DELIVERED:
== END ==
PROVIDERS: PCP Nurse Practitioner Family; Visit Provider Nurse Practitioner Family
DX: M72.2 Plantar fascial fibromatosis (principal)
CPT/HCPCS: 73630

== ENCOUNTER 2025-11-16 08:25 | Outpatient (CLI) | payer OTHER, SELFPAY ==
[2025-11-16 16:06] LABS: HCT 38.8 % (36.0-46.0); HGB 12.7 g/dL (11.2-15.7); Immature Grans % 0.2 %; MCH 29.3 pg (27.0-33.0); MCHC 32.7 % (32.0-36.0); MCV 90 fL (80-95); MPV 10.2 fL (8.0-11.0); Platelet Count 305 10^3/uL (130-400); RBC 4.33 10^6/uL (3.93-5.22); RDW 12.8 % (11.7-14.6); RDW-SD 42.4 fL; WBC 6.06 10^3/uL (4.4-10.8)
[2025-11-16 17:44] LABS: ALT 35 U/L (10-49); AST 28 U/L (<34); Albumin 4.4 g/dL (3.2-5.0); Alkaline Phosphatase 74 U/L (46-116); Anion Gap 10.4 mmol/L (3-11); BUN 9 mg/dL (9-23); Bilirubin, Total 0.4 mg/dL (0.2-1.2); CO2 23.6 mmol/L (20.0-31.0); Calcium 8.8 mg/dL (8.3-10.6); Chloride 107 mmol/L (98-107); Glucose 88 mg/dL (74-106); Potassium 3.8 mmol/L (3.5-5.1); Sodium 141 mmol/L (136-145); Total Protein 7.5 g/dL (5.7-8.2)
== END 2025-11-16 08:26 | disposition home or self-care (01) ==
LOC: LBO 08:25
PROVIDERS: PCP Nurse Practitioner Family; Visit Provider Internal Medicine Hematology & Oncology
DX: C50.212 Malignant neoplasm of upper-inner quadrant of left female breast (principal); Z17.0 Estrogen receptor positive status [ER+]
CPT/HCPCS: 36415; 80053; 85025

== ENCOUNTER 2025-11-21 15:57 | Outpatient (REF) | payer OTHER, SELFPAY ==
--- NOTE | 2025-11-21 16:00 | PAPFT_PTH ---
PATIENT: Janelle Luna LOC: [facility] U#:[id number] AGE/SX: 45/F ROOM: RE11/21/[address]: Julieta Arita DO : 1980 BED: DIS: 11/21/2025 SPEC #: [id number] RECD: 11/21/25 18:31 STATUS: CARLOS REQ #: [id number] ESTELA: 11/21/25 16:[address]: Julieta Arita DEPT: [facility] Cytology RECD BY: Racquel Eduardo ENTERED: 11/21/25 18:31 SP TYPE: PAPFT BRIDGET DR: RAHUL GARCIA NP Tissues: 1 - CX/ENDOCX FOR PAP SMEARS Procedures: PAP THIN PREP/UVM Screening HPV DNA PROBE Comments: [id number] (HPV 16 & 18/45)
--- NOTE | 2025-11-21 16:00 | ENDOMET_PTH ---
PATIENT: Janelle Luna LOC: [facility] U#:[id number] AGE/SX: 45/F ROOM: RE11/21/[address]: Julieta Arita DO : 1980 BED: DIS: 11/21/2025 SPEC #: [id number] RECD: 11/21/25 18:24 STATUS: CARLOS REQ #: [id number] ESTELA: 11/21/25 16:[address]: Julieta Arita DEPT: Surgical Specimen RECD BY: Racqeul Eduardo ENTERED: 11/21/25 18:25 SP TYPE: Endomet OTHR DR: RAHUL GARCIA NP Tissues: 1 - ENDOMETRIUM BX/KAVIN Procedures: GROSS AND MICRO LEVEL 4 Comments: [id number]
== END 2025-11-21 15:58 | disposition home or self-care (01) ==
LOC: LBN 15:57
PROVIDERS: PCP Nurse Practitioner Family; Visit Provider Obstetrics & Gynecology
DX: N93.8 Other specified abnormal uterine and vaginal bleeding (principal); Z12.4 Encounter for screening for malignant neoplasm of cervix
CPT/HCPCS: 88142; 88305; 87624